=== PATIENT | female | born 2000 | race African-American/Black ===

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

== ENCOUNTER 2019-03-10 15:29 | Emergency (ER) | payer OTHER ==
[~2019-03-10] VITALS: Ht 170.2 cm; Wt 77.3 kg
[~2019-03-10 15:29] MED LIST: ALL10TAB28 PO; ALLE24TA7 PO; CALL40PA EXT; FLON1SPR NARES; MEDR4PAK PO
[2019-03-10 20:56] LABS: CHLAMYDIA DNA AMPLIFICATION POSITIVE (NEGATIVE); GC DNA AMPLIFICATION NEGATIVE (NEGATIVE)
[2019-03-10] MEDS ORDERED: FLAG500T PO (21:39)
[2019-03-10 21:41] VITALS: BP 126/77
[2019-03-10] MEDS ORDERED: metroNIDAZOLE (FLAGYL) 500 MG TAB PO ONE (22:00)
== END 2019-03-10 21:51 | disposition home or self-care (01) ==
LOC: M ED 15:29
DX: A59.01 Trichomonal vulvovaginitis (principal)

== ENCOUNTER 2019-03-23 22:11 | Emergency (ER) | payer OTHER, SELFPAY ==
[~2019-03-23] VITALS: Ht 170.2 cm; Wt 77.3 kg
[~2019-03-23 22:11] MED LIST changes: +FLAG500T PO
[2019-03-23 22:13] VITALS: BP 115/62
[2019-03-23] MEDS ORDERED: DIFL200T PO (22:38)
== END 2019-03-23 22:55 | disposition home or self-care (01) ==
LOC: M ED 22:11
DX: B37.3 Candidiasis of vulva and vagina (principal)

== ENCOUNTER 2019-06-30 13:54 | Emergency (ER) | payer SELFPAY ==
[~2019-06-30] VITALS: Ht 170.2 cm; Wt 82.1 kg
[~2019-06-30 13:54] MED LIST changes: -ALL10TAB28 PO; +ALL10TAB29 PO; +DIFL200T PO
[2019-06-30 13:55] VITALS: BP 109/56
== END 2019-06-30 19:17 | disposition left against medical advice (07) ==
LOC: M ED 13:54
DX: Z53.21 Procedure and treatment not carried out due to patient leaving prior to being seen by health care provider (principal)

== ENCOUNTER 2019-10-07 11:45 | Emergency (ER) | payer OTHER, SELFPAY ==
[~2019-10-07] VITALS: Ht 170.2 cm; Wt 77.3 kg
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
--- NOTE | 2019-10-07 13:18 | REP ---
Right knee four views : There is no fracture or dislocation. Mineralization and joint spaces are normal. There are no calcifications or foreign bodies. There is no hemarthrosis. Impression: Negative right knee . Electronically Signed by Mario Padilla MD 10/07/2019 01:09 P
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
[2019-10-07] MEDS ORDERED: IBUPROFEN 800 MG TAB PO ONE (14:15)
[2019-10-07] MEDS ORDERED: ACETAMINOPHEN 325 MG TAB PO ONE (14:15)
[2019-10-07 15:02] LABS: BASO % 0.3 % (0.0-1.0); EOS % 0.6 % (0.0-3.0); HEMOGLOBIN 13.2 g/dl (12.0-15.5); LYMPH # 2.1 10^3/uL (1.5-5.0); LYMPH % 32.8 % (24.0-44.0); MEAN CORPUSCULAR HGB CONC 32.2 g/dl (32.0-36.5); MEAN CORPUSCULAR VOLUME 83.8 fl (80.0-96.0); MONO # 0.4 10^3/uL (0.0-0.8); MONO % 5.5 % (0.0-5.0); NEUTROPHILS # 3.9 10^3/uL (1.5-8.5); NEUTROPHILS % 60.5 % (36.0-66.0); PLATELET COUNT, AUTOMATED 285 10^3/uL (150-450); RED BLOOD COUNT 4.89 10^6/uL (4.00-5.40); WHITE BLOOD COUNT 6.4 10^3/uL (4.0-10.0)
[2019-10-07] MEDS ORDERED: ISOVUE-370 76% 100ML VIAL (Q9967) As Ordered ONE (15:17)
--- NOTE | 2019-10-07 15:58 | REP ---
CT of the chest with IV contrast for subtle pneumomediastinum identified on CT of the thoracic spine earlier today: There is a small pneumomediastinum posterior to the esophagus in the superior and middle mediastinum. The. There is no subcutaneous emphysema in the visualized thoracic inlet. There is no pneumothorax on the right on the left. There are no infiltrates. No pleural effusions. There are no lung masses or nodules. There is no mediastinal or hilar adenopathy. There is no axillary adenopathy. The thoracic aorta is unremarkable. Cardiac size is normal. The visualized upper abdomen is unremarkable. Impression: Small pneumomediastinum posterior to the esophagus in the superior and mid mediastinum. There is no subcutaneous emphysema in the visualized thoracic inlet. There is no pneumothorax. There are no lung masses, nodules, infiltrates or effusions. No adenopathy. No rib fractures are identified. No scapular fracture. No fracture in the visualized portions of the clavicles. Electronically Signed by Mario Padilla MD 10/07/2019 03:49 P
[2019-10-07 19:41] VITALS: BP 145/57
== END 2019-10-07 19:43 | disposition short-term general hospital (02) ==
LOC: M ED 11:45 → EDBD 11:45 → M ED 19:43
DX: S16.1XXA Strain of muscle, fascia and tendon at neck level, initial encounter (principal); V49.49XA Driver injured in collision with other motor vehicles in traffic accident, initial encounter; Y92.410 Unspecified street and highway as the place of occurrence of the external cause; J98.2 Interstitial emphysema
CPT/HCPCS: 36415; 71260; 72125; 72128; 73564; 80047; 84702; 85025; 99284; Q9967

== ENCOUNTER 2019-11-11 11:40 | Emergency (ER) | payer OTHER ==
[~2019-11-11] VITALS: Ht 170.2 cm; Wt 76.2 kg
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
--- NOTE | 2019-11-11 13:40 | REP ---
Left foot four view : There is no fracture or dislocation. Mineralization and joint spaces are normal. There are no calcifications or foreign bodies. Impression: Negative left foot . Electronically Signed by Mario Padilla MD 11/11/2019 01:32 P
[2019-11-11] MEDS ORDERED: NAPR-837 PO (14:31)
[2019-11-11 14:43] VITALS: BP 126/61
== END 2019-11-11 14:44 | disposition home or self-care (01) ==
LOC: M ED 11:40
DX: S93.602A Unspecified sprain of left foot, initial encounter (principal); X50.0XXA Overexertion from strenuous movement or load, initial encounter; Y99.0 Civilian activity done for income or pay

== ENCOUNTER 2020-01-17 16:07 | Emergency (ER) | payer OTHER ==
[~2020-01-17] VITALS: Ht 170.2 cm; Wt 78.3 kg
[2020-01-17 16:07] VITALS: BP 120/60
[~2020-01-17 16:07] MED LIST changes: +NAPR-837 PO
[2020-01-17] MEDS ORDERED: BENA25CA4 PO (16:13)
[2020-01-17] MEDS ORDERED: NITR100C2 (16:13)
[2020-01-17] MEDS ORDERED: TRIAMCINOLONE ACETONIDE 0.025 % 80 GM CREAM TOP ONE (17:00)
[2020-01-17] MEDS ORDERED: methylPREDNISolone INJ 125 MG/2 ML VIAL (J2930) IM ONE (17:00)
[2020-01-17] MEDS ORDERED: FAMOTIDINE 20 MG TAB PO ONE (17:00)
== END 2020-01-17 17:22 | disposition home or self-care (01) ==
LOC: M ED 16:07
DX: L25.9 Unspecified contact dermatitis, unspecified cause (principal); Z79.899 Other long term (current) drug therapy
CPT/HCPCS: 96372; 99283; J2930

== ENCOUNTER 2020-02-16 10:33 | Emergency (ER) | payer OTHER ==
[~2020-02-16] VITALS: Ht 170.2 cm; Wt 77.3 kg
[~2020-02-16 10:33] MED LIST changes: +BENA25CA4 PO; +NITR100C2
[2020-02-16] MEDS ORDERED: ONDANSETRON 4 MG ORAL DISINTEGRATING TAB PO ONE (11:15)
[2020-02-16] MEDS ORDERED: IBUPROFEN 800 MG TAB PO ONE (11:15)
[2020-02-16] MEDS ORDERED: ACETAMINOPHEN 500 MG TAB PO ONE (12:00)
[2020-02-16 13:44] VITALS: BP 114/57
--- NOTE | 2020-02-16 14:05 | REP ---
REASON: Cough and fever. FINDINGS: The technique utilized in obtaining the radiograph has magnified the cardiac silhouette and accentuated the interstitial markings. The superior mediastinal structures are midline. The cardiac silhouette is unremarkable in size, shape, and position. The diaphragmatic surfaces of the lungs are regular, and the costophrenic angles are clear. The pulmonary villalobos are clear. The imaged osseous structures are intact. IMPRESSION: There is no acute cardiopulmonary disease. Electronically Signed by Chucho Perez DO 02/16/2020 05:12 P
== END 2020-02-16 13:44 | disposition home or self-care (01) ==
LOC: M ED 10:33
DX: B34.9 Viral infection, unspecified (principal)
CPT/HCPCS: 71045; 87486; 87581; 87633; 87798; 87880; 99284; Q0162

== ENCOUNTER 2020-07-01 20:18 | Emergency (ER) | payer OTHER ==
[~2020-07-01] VITALS: Ht 160 cm; Wt 77.7 kg
[~2020-07-01 20:18] MED LIST changes: -ALL10TAB29 PO; +CETI-24 PO
[2020-07-01] MEDS ORDERED: IBUPROFEN 600MG TAB PO ONE (20:45)
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
[2020-07-01 22:48] VITALS: BP 118/68
== END 2020-07-01 22:49 | disposition home or self-care (01) ==
LOC: M ED 20:18
DX: S39.012A Strain of muscle, fascia and tendon of lower back, initial encounter (principal); V86.04XA Driver of military vehicle injured in traffic accident, initial encounter; Y92.9 Unspecified place or not applicable; Y99.1 Military activity